=== PATIENT | female | born 1940 | race African-American/Black ===

== ENCOUNTER 2021-03-12 10:39 | Emergency (ER) | payer MEDICARE, SELFPAY ==
[2021-03-12 10:57] VITALS: BP 99/77; PULSE 92; RESP 18; TEMP 36.6; O2SAT 100
[2021-03-12 13:14] VITALS: BP 116/58; PULSE 49; RESP 12; O2SAT 100
--- NOTE | 2021-03-12 13:43 | PC.NURSE ---
Pt. called out for pain medication
--- NOTE | 2021-03-12 14:10 | PC.NURSE ---
attempted to call pt. son at [phone] twice phone line is disconnected. attempted pt. home phone number twice and voicemail states it is a power service.
--- NOTE | 2021-03-12 14:13 | PC.NURSE ---
Pt. requesting to be wheeled out of ED and into the shade to get some fresh air.
--- NOTE | 2021-03-12 14:14 | PC.NURSE ---
Pt. brother reports he is on the way. Requesting RN to tell pt. this.
== END 2021-03-12 14:00 | disposition left against medical advice (07) ==
PROVIDERS: Emergency Provider Emergency Medicine
DX: M79.605 Pain in left leg (principal)
CPT/HCPCS: 99199